=== PATIENT | male | born 1945 | race Caucasian/White ===

== ENCOUNTER 2025-05-01 10:03 | Outpatient (CLI) | payer MEDICARE, OTHER ==
[~2025-05-01 10:03] MED LIST: diatrozoate meglu/diatrozoate sod (37% iodine) 120ML oral solution ONE
--- NOTE | 2025-05-01 15:16 | RADIOLOGY REPORT ---
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 This procedure was done on January 19, 2025. Discussed with Dr. Sheppard. With the patient in a left lateral decubitus position the enema tip was gently advanced into the rectum with the insufflation cuff inflated with a small amount of air for secure positioning. Next dilute Gastrografin liquid was advanced per rectum up to the splenic flexure. There is evidence of mild early extravasation along the posterior aspect of the apparent anastomosis approximately 20 cm from the rectum. There is no evidence of severe stricture however within the descending colon and sigmoid colon or rectum. Incidental note made of an inferior vena cava type filter overlying the upper lumbar spine. Total fluoroscopy time was 1.3 minutes with dose of 87.8 mGy. A total of approximately 200 cc Gastrografin +100 cc water was used for the contrast mixture. IMPRESSION: There is evidence of mild early leakage of Gastrografin outside the confines of the distal sigmoid colon as described above. This appears near the site of surgical sutures.
== END 2025-05-01 23:59 | disposition home or self-care (01) ==
LOC: RAD 10:03
PROVIDERS: ATTEND Surgery
DX: Z93.3 Colostomy status (principal)
CPT/HCPCS: 74270; Q9963

== ENCOUNTER 2025-09-16 12:34 | Outpatient (CLI) | payer MEDICARE, OTHER ==
--- NOTE | 2025-09-16 18:34 | RADIOLOGY REPORT ---
Gastrografin enema: HISTORY: Prior study on 05/01/2025 revealed a small area of extravasation along the extreme distal posterior sigmoid colon. With the patient in the left lateral decubitus position the enema tip was gently advanced into the rectum with insufflation cuff filled with a small amount of air. Next dilute Gastrografin liquid was advanced under direct fluoroscopic evaluation. There was no evidence of contrast extravasation as seen on the prior study. Surgical clips seen in the lower pelvis. There was filling of Gastrografin throughout the majority of the colon. Total fluoroscopy time was 2.5 minutes with dose of 144.67 mGy. IMPRESSION: The previously demonstrated area of extravasation at the distal posterior sigmoid colon just above the rectum (from 05/01/2025 study) is no longer demonstrated consistent with interval healing.
== END 2025-09-16 22:59 | disposition home or self-care (01) ==
LOC: RAD 12:34 → EDSTATUS 13:00 → RAD 22:59
PROVIDERS: ATTEND Radiology Diagnostic Radiology
DX: Z93.3 Colostomy status (principal)
CPT/HCPCS: 74270